=== PATIENT | male | born 1980 | race Caucasian/White ===

== ENCOUNTER 2017-02-14 21:31 | Emergency (ER) | payer MEDICAID ==
[~2017-02-14 21:31] MED LIST: Docusate Sodium PO
== END 2017-02-14 23:00 | disposition left against medical advice (07) ==
LOC: ER 22:54
DX: Z53.21 Procedure and treatment not carried out due to patient leaving prior to being seen by health care provider (principal)

== ENCOUNTER 2017-02-16 00:18 | Emergency (ER) | payer MEDICAID ==
[~2017-02-16] VITALS: Ht 182.9 cm; Wt 109.0 kg
[2017-02-16] MEDS ORDERED: ONDANSETRON HCL 4MG/2ML VIAL IV STA (01:50)
[2017-02-16] MEDS ORDERED: SODIUM CHLORIDE 0.9% 1,000 ML IV ONE (01:50)
[2017-02-16] MEDS ORDERED: MORPHINE SULFATE 4 MG/ML CPJ (NOT FOR IM USE) IV STA (01:50)
[2017-02-16 02:18] LABS: BASOPHILS % 0.3 % (0.0-2.0); EOSINOPHILS % 0.3 % (0.0-5.0); HEMATOCRIT. 45.3 % (42.0-52.0); HEMOGLOBIN. 15.2 g/dL (14.0-18.0); LYMPHOCYTES % 13.6 % (20.0-50.0); MEAN CORPUSCULAR HEMOGLOBIN 31.5 pg (28.0-32.0); MEAN CORPUSCULAR VOLUME 93.8 fL (80.0-94.0); MEAN PLATELET VOLUME 7.9 fl (7.4-10.4); MONOCYTES % 10.1 % (2.0-8.0); NEUTROPHILS % 75.7 % (40.0-76.0); PLATELET 238 x1000/uL (130-400); RED BLOOD CELL COUNT 4.83 mill/uL (4.7-6.1); RED CELL DISTRIBUTION WIDTH 12.8 % (11.6-14.6)
[2017-02-16 02:32] LABS: CARBON DIOXIDE 26 mEq/L (21-32); CHLORIDE 105 mEq/L (98-107)
[2017-02-16 02:43] LABS: CLARITY URINE CLEAR (CLEAR); COLOR URINE YELLOW (YELLOW); GLUCOSE URINE NEGATIVE (NEGATIVE); KETONES URINE NEGATIVE (NEGATIVE); LEUKOCYTE ESTERASE URINE 1+ (NEGATIVE); NITRITE URINE NEGATIVE (NEGATIVE); OCCULT BLOOD URINE 2+ (NEGATIVE); PH URINE 6.5 (4.5-8.0); PROTEIN URINE NEGATIVE (NEGATIVE); SPECIFIC GRAVITY URINE 1.017 (1.005-1.030)
[2017-02-16] MEDS ORDERED: MORPHINE SULFATE 4 MG/ML CPJ (NOT FOR IM USE) IV ONE (05:45)
[2017-02-16] MEDS ORDERED: KETOROLAC 30MG/ML VIAL IV ONE (07:15)
[2017-02-16 07:45] VITALS: BP 122/69
[2017-02-16] MEDS ORDERED: DIATR MEGLU/DIATRIZOATE SOLN 120ML ONE (13:44)
[2017-02-16] MEDS ORDERED: SODIUM CHLORIDE 0.9% 10ML VIAL ONE (13:44)
[2017-02-16] MEDS ORDERED: IOHEXOL-300 100 ML BOTTLE ONE (13:44)
== END 2017-02-16 08:28 | disposition home or self-care (01) ==
LOC: ER 00:18
DX: N20.1 Calculus of ureter (principal); R11.0 Nausea; F12.10 Cannabis abuse, uncomplicated
CPT/HCPCS: 36415; 74177; 80053; 81001; 83690; 85025; 96361; 96374; 96375; 96376; 99285; A4216; J1885; J2270; J2405; J7030; Q9967; Z7610; Q9963

== ENCOUNTER 2017-06-18 18:43 | Emergency (ER) | payer MEDICAID ==
[~2017-06-18] VITALS: Ht 182.9 cm; Wt 113.0 kg
[2017-06-18 18:46] VITALS: BP 173/87
== END 2017-06-19 00:56 | disposition left against medical advice (07) ==
LOC: ER 18:43
DX: R10.30 Lower abdominal pain, unspecified (principal); Z53.21 Procedure and treatment not carried out due to patient leaving prior to being seen by health care provider

== ENCOUNTER 2022-08-11 14:27 | Emergency (ER) | payer MEDICAID ==
[~2022-08-11] VITALS: Ht 182.9 cm; Wt 109.0 kg
[2022-08-11 15:11] VITALS: BP 144/100
[2022-08-11] MEDS ORDERED: TETRACAINE 0.5% OPHTH DROPS 4ML BOTHEYE ONE (16:00)
[2022-08-11] MEDS ORDERED: FLUORESCEIN SODIUM 1MG/STRIP BOTHEYE ONE (16:00)
[2022-08-11] MEDS ORDERED: POLY15DR31 EACHEYE (16:57)
== END 2022-08-11 17:21 | disposition home or self-care (01) ==
LOC: ER 14:44
DX: H43.393 Other vitreous opacities, bilateral (principal); E11.9 Type 2 diabetes mellitus without complications; I10 Essential (primary) hypertension; F12.10 Cannabis abuse, uncomplicated
CPT/HCPCS: 82962; 99283